=== PATIENT | female | born 1960 | race Caucasian/White ===

== ENCOUNTER 2017-11-17 03:17 | Emergency (ER) | payer BC ==
[2017-11-17 04:00] VITALS: BMI 29.2
--- NOTE | 2017-11-17 04:28 | PDOC ---
History of Present Illness - General Chief Complaint: Headache Stated Complaint: HEADACHE/DIZZNESS/NAUSEA Time Seen by Provider: 11/17/17 04:24 History Source: Patient Exam Limitations: No Limitations - History of Present Illness Initial Comments: 11/17/17 23:56 57-year-old female presents to the emergency department complaining of left occipital headache x2 weeks. Pt states pain is described as 4/10 dull non radiating discomfort without exacerbating factors. Alleviated with motrin. Patient denies fever, chills, nausea/vomiting, dizziness, lightheadedness, neck pain/stiffness, back pains, chest pain, shortness of breath, abdominal pains, Rhys numbness or tingling sensation. Past History - Past Medical History Allergies/Adverse Reactions: Allergies Allergy/AdvReac Type Severity Reaction Status Date / Time No Known Allergies Allergy Verified 11/17/17 03:58 - Suicide/Smoking/Psychosocial Hx Smoking History: Never smoked Have you smoked in the past 12 months: No Information on smoking cessation initiated: No Hx Alcohol Use: No Drug/Substance Use Hx: No Review of Systems - Review of Systems Able to Perform ROS?: Yes Comments:: 11/17/17 06:40 CONSTITUTIONAL: Absent: fever, chills, diaphoresis, generalized weakness, malaise, loss of appetite HEENT: Absent: rhinorrhea, nasal congestion, throat pain, throat swelling, difficulty swallowing, mouth swelling, ear pain, eye pain, visual Changes CARDIOVASCULAR: Absent: chest pain, loss of consciousness, palpitations, irregular heart rate, peripheral edema RESPIRATORY: Absent: cough, shortness of breath, dyspnea with exertion, orthopnea, wheezing, stridor, hemoptysis GASTROINTESTINAL: Absent: abdominal pain, abdominal distension, nausea, vomiting, diarrhea, constipation, melena, hematochezia GENITOURINARY: Absent: dysuria, frequency, urgency, hesitancy, hematuria, flank pain, genital pain MUSCULOSKELETAL: Absent: myalgia, arthralgia, joint swelling SKIN: Absent: rash, itching, pallor HEMATOLOGIC/IMMUNOLOGIC: Absent: easy bleeding, easy bruising, lymphadenopathy, frequent infections ENDOCRINE: Absent: unexplained weight gain, unexplained weight loss, heat intolerance, cold intolerance NEUROLOGIC: +left sided occipital barakat Absent: focal weakness or paresthesias, dizziness, unsteady gait, seizure, mental status changes, bladder or bowel incontinence PSYCHIATRIC: Absent: anxiety, depression, suicidal or homicidal ideation, hallucinations. Is the patient limited Lao proficient: No *Physical Exam - Vital Signs Last Vital Signs Temp Pulse Resp BP Pulse Ox 97.6 F 60 20 140/79 99 11/17/17 03:20 11/17/17 03:20 11/17/17 03:20 11/17/17 03:20 11/17/17 03:20 - Physical Exam Comments: 11/17/17 06:41 GENERAL: Well developed, well nourished. Awake and alert. No acute distress. HEENT: Normocephalic, atraumatic. PERRLA, EOMI. No conjunctival pallor. Sclera are non- icteric. Moist mucous membranes. Oropharynx is clear. NECK: Supple. Full ROM. No JVD. Carotid pulses 2+ and symmetric, without bruits. No thyromegaly. No lymphadenopathy. CARDIOVASCULAR: Regular rate and rhythm. No murmurs, rubs, or gallops. Distal pulses are 2+ and symmetric. PULMONARY: No evidence of respiratory distress. Lungs clear to auscultation bilaterally. No wheezing, rales or rhonchi. ABDOMINAL: Soft. Non-tender. Non-distended. No rebound or guarding. No organomegaly. Normoactive bowel sounds. MUSCULOSKELETAL Normal range of motion at all joints. No bony deformities or tenderness. No CVA tenderness. EXTREMITIES: No cyanosis. No clubbing. No edema. No calf tenderness. SKIN: Warm and dry. Normal capillary refill. No rashes. No jaundice. NEUROLOGICAL: Alert, awake, appropriate. Cranial nerves 2-12 intact. No deficits to light touch and temperature in face, upper extremities and lower extremities. No motor deficits in the in face, upper extremities and lower extremities. Normoreflexic in the upper and lower extremities. Normal speech. Toes are down- going bilaterally. Gait is normal without ataxia. PSYCHIATRIC: Cooperative. Good eye contact. Appropriate mood and affect. ED Treatment Course - RADIOLOGY Radiograph Interpretation: 11/17/17 05:24 CT head w/o contrast; WNL Progress Note - Progress Note Progress Note: Patient adamantly refuses any IV fluids/Reglan. Patient states she will follow with her doctor/neurologist. *DC/Admit/Observation/Transfer Diagnosis at time of Disposition: Headache Qualifiers: Headache type: other headache syndrome Qualified Code(s): G44.89 - Other headache syndrome - Discharge Dispostion Disposition: HOME Condition at time of disposition: Stable Decision to Admit order: No - Referrals Referrals: Drew Trevizo MD [Staff Physician] - - Patient Instructions Printed Discharge Instructions: DI for Headache Additional Instructions: Increase fluids Take Tylenol alternating with Motrin as needed for pain Follow with the neurologist this week Return back to the ER for severe/persistent or worsening symptoms - Post Discharge Activity
[2017-11-17] MEDS ORDERED: SODIUM CHLORIDE 1,000 ML IV STA (05:24)
[2017-11-17] MEDS ORDERED: METOCLOPRAMIDE HCL INJECTION 10 MG/2 ML VIAL IVPB ONE (05:24)
[2017-11-17] MEDS ORDERED: METOCLOPRAMIDE HCL INJECTION 10 MG/2 ML VIAL ONE (05:56)
[2017-11-17 06:41] VITALS: BP 132/72; PULSE 71; TEMP 98.2
== END 2017-11-17 06:20 | disposition home or self-care (01) ==
LOC: JER 03:17
DX: G44.89 Other headache syndrome (principal)
CPT/HCPCS: 70450-TC; 99281-25